=== PATIENT | female | born 1950 | race Native Hawaiian/Other Pacific Islander ===

== ENCOUNTER 2018-02-10 16:56 | Outpatient (CLI) | payer OTHER | END 2018-02-10 22:33 | disposition home or self-care (01) | LOC: RAD 16:56 | DX: M25.511 Pain in right shoulder (principal) ==

== ENCOUNTER 2018-03-18 09:52 | Outpatient (CLI) | payer OTHER | END 2018-03-18 19:36 | disposition home or self-care (01) | LOC: MRI 09:52 | DX: M25.519 Pain in unspecified shoulder (principal) ==

== ENCOUNTER 2018-04-28 13:23 | Outpatient (CLI) | payer OTHER | END 2018-04-28 20:42 | disposition home or self-care (01) | LOC: LABW 13:23 | DX: R19.7 Diarrhea, unspecified (principal) | CPT/HCPCS: 82272; 83630; 87015; 87045; 87324; 87328; 87329; 87449; 87899 ==

== ENCOUNTER 2018-05-27 11:02 | Outpatient (CLI) | payer OTHER | END 2018-05-27 23:03 | disposition home or self-care (01) | LOC: RAD 11:02 | DX: R10.9 Unspecified abdominal pain (principal) ==

== ENCOUNTER 2018-09-02 09:11 | Outpatient (CLI) | payer OTHER | END 2018-09-02 22:23 | disposition home or self-care (01) | LOC: MRI 09:11 | DX: R51 Headache (principal); Z12.31 Encounter for screening mammogram for malignant neoplasm of breast | CPT/HCPCS: 36415; 82565; 84520; A9576 ==

== ENCOUNTER 2019-04-13 16:36 | Outpatient (CLI) | payer OTHER | END 2019-04-13 20:04 | disposition home or self-care (01) | LOC: RAD 16:36 | DX: M54.5 Low back pain (principal); M25.551 Pain in right hip; G47.09 Other insomnia ==

== ENCOUNTER 2020-06-08 13:09 | Outpatient (CLI) | payer OTHER | END 2020-06-08 19:58 | disposition home or self-care (01) | LOC: MAMMO 13:09 | PROVIDERS: ATTEND Family Medicine | DX: N63.10 Unspecified lump in the right breast, unspecified quadrant (principal); N64.89 Other specified disorders of breast; G89.4 Chronic pain syndrome; G47.00 Insomnia, unspecified; G43.909 Migraine, unspecified, not intractable, without status migrainosus; I49.3 Ventricular premature depolarization | CPT/HCPCS: G0279 ==

== ENCOUNTER 2020-10-05 14:43 | Outpatient (CLI) | payer OTHER | END 2020-10-05 22:51 | disposition home or self-care (01) | LOC: RAD 14:43 | PROVIDERS: ATTEND Family Medicine | DX: M54.5 Low back pain (principal) ==

== ENCOUNTER 2021-10-23 16:39 | Outpatient (CLI) | payer OTHER | END 2021-10-23 20:40 | disposition home or self-care (01) | LOC: RAD 16:39 | PROVIDERS: ATTEND Family Medicine | DX: R05.3 Chronic cough (principal) ==

== ENCOUNTER 2022-08-21 12:50 | Outpatient (CLI) | payer OTHER | END 2022-08-21 18:56 | disposition home or self-care (01) | LOC: MRI 12:50 | PROVIDERS: ATTEND Family Medicine | DX: R51.9 Headache, unspecified (principal); G93.0 Cerebral cysts; R42 Dizziness and giddiness; H93.13 Tinnitus, bilateral; H91.90 Unspecified hearing loss, unspecified ear; R11.2 Nausea with vomiting, unspecified | CPT/HCPCS: 36415; 82565; 84520; A9576 ==

== ENCOUNTER 2022-11-29 13:12 | Outpatient (CLI) | payer OTHER | END 2022-11-29 21:55 | disposition home or self-care (01) | LOC: RAD 13:12 → MAMMO 13:12 | PROVIDERS: ATTEND Family Medicine | DX: R00.2 Palpitations (principal); I49.3 Ventricular premature depolarization; Z12.31 Encounter for screening mammogram for malignant neoplasm of breast ==